=== PATIENT | female | born 1955 | race Caucasian/White ===

== ENCOUNTER 2019-05-04 16:48 | Outpatient (CLI) | payer MEDICARE, OTHER ==
[~2019-05-04 16:48] MED LIST: ALEN70TA60 PO; ASPI-611 PO; EST1T PO; HYDR-4353 PO; MULT-785 PO; OLAN2.5T3 PO; OXCA300T4 PO; OXCA600T5 PO; PROM25TA14 PO; SIMV-42 PO; SODI500S5 PO; VAL5T PO
== END 2019-05-04 23:59 | disposition home or self-care (01) ==
LOC: VAS 16:48
PROVIDERS: ATTEND Family Medicine
DX: R22.42 Localized swelling, mass and lump, left lower limb (principal); M79.605 Pain in left leg; J45.909 Unspecified asthma, uncomplicated; Z87.891 Personal history of nicotine dependence; Z86.69 Personal history of other diseases of the nervous system and sense organs
CPT/HCPCS: 93971

== ENCOUNTER 2019-12-05 07:59 | Emergency (ER) | payer MEDICARE, OTHER ==
[~2019-12-05] VITALS: Ht 162.6 cm; Wt 56.8 kg
[2019-12-05] MEDS ORDERED: ibuprofen 200mg tablet PO ONE (08:45)
[2019-12-05] MEDS ORDERED: morphine 4 MG/ML inj SYRINge IM ONE (08:45)
[2019-12-05] MEDS ORDERED: morphine 2 MG/ML inj. syringe IV PRN (10:10)
[2019-12-05 11:05] VITALS: BP 130/60
== END 2019-12-05 11:06 | disposition home or self-care (01) ==
LOC: ER 07:59
DX: M54.5 Low back pain (principal); J45.909 Unspecified asthma, uncomplicated; Z79.82 Long term (current) use of aspirin; Z79.899 Other long term (current) drug therapy
CPT/HCPCS: 72131; 96372; 99284; J2270

== ENCOUNTER 2022-11-07 06:32 | Emergency (ER) | payer MEDICARE, OTHER ==
[~2022-11-07] VITALS: Ht 162.6 cm; Wt 52.3 kg
[~2022-11-07 06:32] MED LIST changes: +DIAZ5TAB22 PO; -VAL5T PO
[2022-11-07 07:43] LABS: CLARITY,URINE CLEAR (Clear); COLOR,URINE STRAW (Yellow); GLUCOSE, URINE NEGATIVE (Neg); KETONES,URINE NEGATIVE (Neg); LEUKOCYTE ESTERASE ,URINE NEGATIVE (Neg); NITRITES, URINE NEGATIVE (Neg); OCCULT BLOOD,URINE NEGATIVE (Neg); PROTEIN,URINE NEGATIVE (Neg); UROBILINOGEN,URINE 0.2 E.U/dL (0.2-1.0)
[2022-11-07 07:46] LABS: UA COLLECTION TYPE CLN CATCH MIDSTREAM
[2022-11-07 07:52] LABS: BASOPHILS # (AUTO) 0.1 X10'3 (0-0.2); BASOPHILS % (AUTO) 0.6 % (0-1); EOSINOPHILS # (AUTO) 0.3 X10'3 (0-0.9); EOSINOPHILS % (AUTO) 3.1 % (0-6); HEMATOCRIT 38.4 % (35.0-45.0); HEMOGLOBIN 13.1 g/dl (12.0-16.0); LYMPHOCYTES # (AUTO) 1.3 X10'3 (1.1-4.8); LYMPHOCYTES % (AUTO) 12.2 % (21-51); MEAN CORPUSCULAR HEMOGLOBIN 32.9 PG (27.0-31.0); MEAN CORPUSCULAR HGB CONC 34.1 g/dL (33.0-36.5); MEAN CORPUSCULAR VOLUME 96.3 FL (78-98); MEAN PLATELET VOLUME 9.1 FL (7.4-10.4); MONOCYTES # (AUTO) 0.5 X10'3 (0-0.9); MONOCYTES % (AUTO) 5.1 % (2-12); NEUTROPHILS # (AUTO) 8.3 X10'3 (1.8-7.7); PLATELET COUNT 208 X10'3 (140-440); RED BLOOD COUNT 3.99 X10'6 (4.20-5.60); RED CELL DISTRIBUTION WIDTH 13.8 % (11.5-14.5); WHITE BLOOD COUNT 10.5 X10'3 (4.5-11.0)
[2022-11-07 08:09] LABS: ALANINE AMINOTRANSFERASE 49 U/L (12-78); ALBUMIN 3.7 G/DL (3.4-5.0); ALBUMIN/GLOBULIN RATIO 1.2 (1.1-1.5); ALKALINE PHOSPHATASE 96 IU/L (46-116); ANION GAP 5 (8-16); ASPARTATE AMINO TRANSFERASE 32 U/L (10-37); BILIRUBIN,TOTAL 0.4 MG/DL (0.1-1.0); BLOOD UREA NITROGEN 11 MG/DL (7-18); BUN/CREATININE RATIO 14.1 (10.0-20.0); CALCIUM 8.8 MG/DL (8.5-10.1); CHLORIDE 104 MMOL/L (99-107); CREATININE 0.78 MG/DL (0.40-0.90); GLUCOSE 97 MG/DL (70-104); LIPASE < 50 U/L (73-393); POTASSIUM 3.8 MMOL/L (3.5-5.1); SODIUM 138 MMOL/L (135-145); TOTAL CARBON DIOXIDE 29.2 MMOL/L (24-32); TOTAL PROTEIN 6.7 G/DL (6.4-8.2); eGFR 73 ML/MIN
[2022-11-07] MEDS ORDERED: TRAM50TA2 PO (11:04)
[2022-11-07] MEDS ORDERED: ONDA4TAB12 PO (11:04)
[2022-11-07] MEDS ORDERED: ketorolac trometh. 30mg/ml inj. IV ONE (11:05)
[2022-11-07] MEDS ORDERED: normal saline 1000ML IV soln IVB ONE (11:05)
[2022-11-07] MEDS ORDERED: ondansetron/PF 4mg/2ml inj IV ONE (11:05)
[2022-11-07] MEDS ORDERED: morphine 4 MG/ML inj SYRINge IV PRN (11:05)
[2022-11-07 13:09] VITALS: BP 103/64
== END 2022-11-07 13:11 | disposition home or self-care (01) ==
LOC: ER 06:32
DX: R10.9 Unspecified abdominal pain (principal); R11.0 Nausea; J44.9 Chronic obstructive pulmonary disease, unspecified; Z90.49 Acquired absence of other specified parts of digestive tract; Z79.899 Other long term (current) drug therapy; Z79.82 Long term (current) use of aspirin
CPT/HCPCS: 36415; 76857; 80053; 81003; 83690; 85025; 96361; 96374; 96375; 99285; J1885; J2270; J2405; J7030; 99284